=== PATIENT | female | born 1995 | race Caucasian/White ===

== ENCOUNTER 2020-04-08 12:48 | Emergency (ER) | payer BC ==
[~2020-04-08] VITALS: Ht 160 cm; Wt 72.0 kg
[2020-04-08] MEDS ORDERED: SODIUM CHLORIDE 0.9% 1,000ML IVBOLUS ONE (13:30)
--- NOTE | 2020-04-08 13:30 | NUR ---
PT REPORTED THAT SHE HAS HAD DIARRHEA AND LOWER ABDOMEN CRAMPING X4 DAYS. PT IS CURRENTLY 14 WEEKS . PT HAS BEEN RECEIVING CARE. PT DENIES ANY VAGINAL BLEEDING/DISCHARGE OR PAINFUL URINATION.
[2020-04-08 14:02] LABS: MICROSCOPIC NOT IND
[2020-04-08 14:22] LABS: BASOPHILS % (AUTO) 0 % (0-1); EOSINOPHILS % (AUTO) 1 % (1-7); LYMPHOCYTES % (AUTO) 22 % (22-44); MEAN CORPUSCULAR HEMOGLOBIN 31.5 pg (27.0-34.8); MEAN CORPUSCULAR HGB CONC 34.8 g/dL (32.4-35.8); MEAN PLATELET VOLUME 8.2 fL (7.4-10.4); MONOCYTES % (AUTO) 9 % (2-9); NEUTROPHILS % (AUTO) 68 % (42-75); PLATELET COUNT 300 x10^3/uL (130-400); RED CELL DISTRIBUTION WIDTH 12.4 % (9.6-15.2)
[2020-04-08 14:23] LABS: MD NO
[2020-04-08 14:32] LABS: ALBUMIN 3.5 g/dL (3.4-5.0); ANION GAP 8 mmol/L (5-15); CALCIUM 8.9 mg/dL (8.5-10.1); CHLORIDE 109 mmol/L (98-107); CREATININE 0.61 mg/dL (0.55-1.02)
--- NOTE | 2020-04-08 14:45 | NUR ---
PT RESTING COMFORTABLY, IV FLUIDS INFUSING
[2020-04-08 15:30] VITALS: BP 125/78
== END 2020-04-08 15:33 | disposition home or self-care (01) ==
LOC: ED 14:08
DX: O26.892 Other specified pregnancy related conditions, second trimester (principal); R10.2 Pelvic and perineal pain; R19.7 Diarrhea, unspecified; Z3A.00 Weeks of gestation of pregnancy not specified
CPT/HCPCS: 36415; 80048; 81003; 82040; 85025; 99284; J7030

== ENCOUNTER 2020-05-29 09:45 | Outpatient (CLI) | payer BC ==
[~2020-05-29] VITALS: Ht 160 cm; Wt 76.4 kg
[2020-05-29 10:15] VITALS: BP 112/61
== END 2020-05-29 10:40 | disposition home or self-care (01) ==
LOC: LDOP 09:45
PROVIDERS: ATTEND Obstetrics & Gynecology Maternal & Fetal Medicine
DX: O9A.212 Injury, poisoning and certain other consequences of external causes complicating pregnancy, second trimester (principal); W19.XXXA Unspecified fall, initial encounter; Y93.89 Activity, other specified; Y92.89 Other specified places as the place of occurrence of the external cause; Y99.8 Other external cause status; Z3A.21 21 weeks gestation of pregnancy
CPT/HCPCS: 99211; G0463

== ENCOUNTER 2020-08-20 19:34 | Outpatient (CLI) | payer BC ==
[2020-08-20 20:47] LABS: MICROSCOPIC NOT IND
== END 2020-08-20 21:31 | disposition home or self-care (01) ==
LOC: LDOP 19:34
PROVIDERS: ATTEND Obstetrics & Gynecology Maternal & Fetal Medicine
DX: O26.893 Other specified pregnancy related conditions, third trimester (principal); R10.9 Unspecified abdominal pain; M54.5 Low back pain; Z3A.34 34 weeks gestation of pregnancy
CPT/HCPCS: 59025; 81003

== ENCOUNTER 2020-09-25 04:53 | Inpatient (IN) | payer BC ==
[~2020-09-25] VITALS: Ht 160 cm; Wt 87.3 kg
[2020-09-25] MEDS ORDERED: NEWBORN KIT ONE (05:01)
[2020-09-25] MEDS ORDERED: LIDOCAINE 1%, 20ML ONE (05:29)
[2020-09-25] MEDS ORDERED: MISOPROSTOL 200 MCG TABLET ONE (05:29)
[2020-09-25] MEDS ORDERED: OXYTOCIN 30U/ 0.9% NaCL 500ML 500 ML ONE (05:29)
[2020-09-25] MEDS ORDERED: ONDANSETRON 2MG/ML, 2ML IVPush PRN (05:30)
[2020-09-25] MEDS ORDERED: D5%-LACTATED RINGERS 1,000 ML IV SCH (05:30)
[2020-09-25] MEDS ORDERED: TERBUTALINE 1 MG/ML, 1ML IVPush PRN (05:30)
[2020-09-25] MEDS ORDERED: CALCIUM CARBONATE 500 MG TAB.CHEW PO PRN (05:30)
[2020-09-25] MEDS ORDERED: FENTANYL PF 100 MCG/2ML IVPush PRN (05:30)
[2020-09-25] MEDS ORDERED: OXYTOCIN 30U/ 0.9% NaCL 500ML 500 ML IV ONE (05:30)
[2020-09-25] MEDS ORDERED: FENTANYL PF 100 MCG/2ML IV PRN (05:30)
[2020-09-25] MEDS ORDERED: OXYTOCIN 30U/ 0.9% NaCL 500ML 500 ML IV PRN (05:30)
[2020-09-25] MEDS: LACTATED RINGERS 1,000 ML IV SCH ×3 (05:30→22:07)
[2020-09-25] MEDS ORDERED: PENICILLIN GK 5,000,000 UNITS in DEXTROSE 5% 100 ML IVPB ONE (05:30)
[2020-09-25] MEDS ORDERED: TERBUTALINE 1 MG/ML, 1ML SQ PRN (05:30)
[2020-09-25 06:02] LABS: BASOPHILS % (AUTO) 0 % (0-1); EOSINOPHILS % (AUTO) 1 % (1-7); LYMPHOCYTES % (AUTO) 23 % (22-44); MEAN CORPUSCULAR HEMOGLOBIN 31.9 pg (27.0-34.8); MEAN PLATELET VOLUME 9.1 fL (7.4-10.4); MONOCYTES % (AUTO) 8 % (2-9); NEUTROPHILS % (AUTO) 67 % (42-75); PLATELET COUNT 263 x10^3/uL (130-400); RED BLOOD COUNT 4.11 x10^6/uL (3.82-5.3); RED CELL DISTRIBUTION WIDTH 13.1 % (9.6-15.2)
[2020-09-25] MEDS: PENICILLIN GK 2,500,000 UNITS in DEXTROSE 5% 100 ML IVPB SCH ×2 (09:37→13:34)
[2020-09-25] MEDS ORDERED: IBUPROFEN 600 MG TABLET ONE (16:02)
[2020-09-25] MEDS: IBUPROFEN 600 MG TABLET PO PRN ×2 (16:07→22:46)
[2020-09-25] MEDS ORDERED: IBUPROFEN 600 MG TABLET PO PRN (17:00)
[2020-09-25] MEDS ORDERED: SIMETHICONE 80 MG CHEW TAB PO PRN (17:00)
[2020-09-25] MEDS ORDERED: MISOPROSTOL 200 MCG TABLET PR PRN (17:00)
[2020-09-25] MEDS ORDERED: CARBOPROST TROMETHAMINE 250 MCG/ML, 1ML IM PRN (17:00)
[2020-09-25] MEDS ORDERED: OXYcodone/APAP 5/325MG TABLET PO PRN ×2 (17:00)
[2020-09-25] MEDS ORDERED: DIPH,PERTUSS(ACELL),TET VAC/PF NC IM-VACC PRN (17:00)
[2020-09-25] MEDS ORDERED: ACETAMINOPHEN 325 MG TABLET PO PRN (17:00)
[2020-09-25] MEDS ORDERED: METHYLERGONOVINE 0.2 MG/ML IM PRN (17:00)
[2020-09-25] MEDS: OXYTOCIN 30U/ 0.9% NaCL 500ML 500 ML IV SCH (18:00)
[2020-09-25 19:20] VITALS: BP 108/67
[2020-09-25] MEDS: DOCUSATE 100 MG CAPSULE PO PRN (22:46)
[2020-09-25 23:27] VITALS: BP 99/62
[2020-09-25 23:38] LABS: BASOPHILS % (AUTO) 1 % (0-1); EOSINOPHILS % (AUTO) 0 % (1-7); LYMPHOCYTES % (AUTO) 9 % (22-44); MEAN CORPUSCULAR HEMOGLOBIN 31.5 pg (27.0-34.8); MEAN CORPUSCULAR HGB CONC 34.6 g/dL (32.4-35.8); MONOCYTES % (AUTO) 6 % (2-9); NEUTROPHILS % (AUTO) 84 % (42-75); PLATELET COUNT 287 x10^3/uL (130-400); RED BLOOD COUNT 4.14 x10^6/uL (3.82-5.3); RED CELL DISTRIBUTION WIDTH 13.4 % (9.6-15.2)
[2020-09-26] MEDS: LACTATED RINGERS 1,000 ML IV SCH ×3 (04:01→21:30)
[2020-09-26] MEDS: OXYTOCIN 30U/ 0.9% NaCL 500ML 500 ML IV SCH ×2 (04:01→14:00)
[2020-09-26 04:30] VITALS: BP 124/83
[2020-09-26] MEDS: IBUPROFEN 600 MG TABLET PO PRN ×3 (05:16→21:05)
[2020-09-26 07:30] VITALS: BP 109/68
[2020-09-26] MEDS: PRENATAL VIT/IRON/FA 1 EACH TABLET PO SCH (07:31)
[2020-09-26] MEDS: DOCUSATE 100 MG CAPSULE PO PRN ×2 (07:31→21:05)
[2020-09-26 14:50] VITALS: BP 105/68
[2020-09-26 22:30] VITALS: BP 108/71
[2020-09-27] MEDS: IBUPROFEN 600 MG TABLET PO PRN (03:23)
[2020-09-27] MEDS: LACTATED RINGERS 1,000 ML IV SCH (05:30)
[2020-09-27] MEDS ORDERED: IBUP-1222 PO (07:36)
[2020-09-27 08:30] VITALS: BP 103/66
[2020-09-27] MEDS: PRENATAL VIT/IRON/FA 1 EACH TABLET PO SCH (09:00)
[2020-09-27] MEDS: OXYTOCIN 30U/ 0.9% NaCL 500ML 500 ML IV SCH ×2 (10:00)
== END 2020-09-27 12:05 | disposition home or self-care (01) | DRG 807 ==
LOC: LDIP 04:53 → OBSVTOIN 05:27 → 2NW 19:07
PROVIDERS: ADMIT Obstetrics & Gynecology Maternal & Fetal Medicine; ATTEND Obstetrics & Gynecology Maternal & Fetal Medicine
PROC: 3E033VJ Introduction of Other Hormone into Peripheral Vein, Percutaneous Approach (ICD-10-PCS; principal; 2020-09-25)
PROC: 10E0XZZ Delivery of Products of Conception, External Approach (ICD-10-PCS; 2020-09-25)
PROC: 0HQ9XZZ Repair Perineum Skin, External Approach (ICD-10-PCS; 2020-09-25)
DX: O99.824 Streptococcus B carrier state complicating childbirth (principal); Z37.0 Single live birth; Z20.822 Contact with and (suspected) exposure to COVID-19; O64.0XX0 Obstructed labor due to incomplete rotation of fetal head, not applicable or unspecified; O70.0 First degree perineal laceration during delivery; Z3A.39 39 weeks gestation of pregnancy
CPT/HCPCS: 36415; 85025; 86592; 86850; 86900; 87635; J2540; J2590; J7120; G0378

== ENCOUNTER 2020-10-10 00:33 | Emergency (ER) | payer BC ==
[~2020-10-10] VITALS: Ht 160 cm; Wt 79.5 kg
[~2020-10-10 00:33] MED LIST: IBUP-1222 PO
[2020-10-10] MEDS ORDERED: ONDANSETRON 2MG/ML, 2ML IVPush ONE (01:00)
[2020-10-10] MEDS ORDERED: SODIUM CHLORIDE FLUSH 10ML SYR IVF ONE (01:00)
[2020-10-10] MEDS ORDERED: MORPHINE SULFATE 4 MG/ML, 1ML IVPush PRN (01:00)
[2020-10-10] MEDS ORDERED: MORPHINE SULFATE 4 MG/ML, 1ML ONE (01:05)
[2020-10-10] MEDS ORDERED: ONDANSETRON 2MG/ML, 2ML ONE (01:05)
--- NOTE | 2020-10-10 01:24 | NUR ---
pt medicated per order, tolerated well, UA sent to lab at this time
[2020-10-10 01:29] LABS: MICROSCOPIC INDICATED
[2020-10-10 01:42] LABS: BASOPHILS % (AUTO) 0 % (0-1); EOSINOPHILS % (AUTO) 0 % (1-7); LYMPHOCYTES % (AUTO) 10 % (22-44); MEAN CORPUSCULAR HGB CONC 33.8 g/dL (32.4-35.8); MEAN PLATELET VOLUME 8.5 fL (7.4-10.4); MONOCYTES % (AUTO) 10 % (2-9); NEUTROPHILS % (AUTO) 80 % (42-75); PLATELET COUNT 295 x10^3/uL (130-400); RED BLOOD COUNT 4.44 x10^6/uL (3.82-5.3); RED CELL DISTRIBUTION WIDTH 13.2 % (9.6-15.2)
[2020-10-10 01:53] LABS: ALANINE AMINOTRANSFERASE 38 U/L (12-78); ALBUMIN 3.2 g/dL (3.4-5.0); ANION GAP 8 mmol/L (5-15); CALCIUM 8.3 mg/dL (8.5-10.1); CHLORIDE 107 mmol/L (98-107)
--- NOTE | 2020-10-10 01:57 | NUR ---
pt resting in bed, vss, torin. awaiting US read and dispo
[2020-10-10 01:58] LABS: ALKALINE PHOSPHATASE 148 U/L (45-117); BILIRUBIN,TOTAL 0.2 mg/dL (0.2-1.0); CREATININE 0.63 mg/dL (0.55-1.02)
--- NOTE | 2020-10-10 02:45 | NUR ---
ermd [place] at bedside to discuss poc
--- NOTE | 2020-10-10 02:57 | NUR ---
report given to Linus cardoso
[2020-10-10] MEDS ORDERED: CEFTRIAXONE 1,000 MG in DEXTROSE 5% 50 ML IVPB ONE (03:00)
[2020-10-10 03:58] VITALS: BP 101/55
== END 2020-10-10 04:00 | disposition home or self-care (01) ==
LOC: ED 03:02
DX: N30.01 Acute cystitis with hematuria (principal); K80.70 Calculus of gallbladder and bile duct without cholecystitis without obstruction; R10.84 Generalized abdominal pain
CPT/HCPCS: 36415; 76700; 80053; 81001; 83690; 84702; 85025; 87086; 96365; 96375; 99284; J0696; J2270; J2405

== ENCOUNTER 2020-10-13 21:30 | Emergency (ER) | payer BC ==
[~2020-10-13] VITALS: Ht 160 cm; Wt 78.8 kg
[2020-10-13 21:36] VITALS: BP 143/78
== END 2020-10-14 01:30 | disposition home or self-care (01) ==
LOC: ED 21:40
DX: U07.1 COVID-19 (principal); J40 Bronchitis, not specified as acute or chronic; R07.89 Other chest pain
CPT/HCPCS: 71045; 99283

== ENCOUNTER 2020-11-06 03:09 | Emergency (ER) | payer BC ==
[~2020-11-06] VITALS: Ht 160 cm; Wt 79.4 kg
[2020-11-06 04:32] LABS: BASOPHILS % (AUTO) 1 % (0-1); EOSINOPHILS % (AUTO) 3 % (1-7); LYMPHOCYTES % (AUTO) 42 % (22-44); MEAN CORPUSCULAR HEMOGLOBIN 30.8 pg (27.0-34.8); MEAN PLATELET VOLUME 7.8 fL (7.4-10.4); MONOCYTES % (AUTO) 8 % (2-9); NEUTROPHILS % (AUTO) 47 % (42-75); PLATELET COUNT 323 x10^3/uL (130-400); RED BLOOD COUNT 4.87 x10^6/uL (3.82-5.3); RED CELL DISTRIBUTION WIDTH 13.1 % (9.6-15.2)
[2020-11-06 04:45] LABS: ALBUMIN 3.8 g/dL (3.4-5.0); CALCIUM 9.2 mg/dL (8.5-10.1); CHLORIDE 110 mmol/L (98-107)
[2020-11-06 04:54] LABS: ANION GAP 4 mmol/L (5-15)
[2020-11-06 05:33] LABS: MICROSCOPIC INDICATED
--- NOTE | 2020-11-06 06:38 | NUR ---
Elsie leon supervising transvaginal ultrasound for US tech
--- NOTE | 2020-11-06 07:04 | NUR ---
REPORT FROM OSWALD WRIGHT. PT IN BED C/O UPPER ABD PAIN, AMBULAOTRY GAIT STEADY, US PENDING, CALL [place]. WILL NOTIFY
[2020-11-06] MEDS ORDERED: KETOROLAC 30 MG/1 ML ONE (07:08)
[2020-11-06 07:12] VITALS: BP 132/87
[2020-11-06] MEDS ORDERED: KETOROLAC 30 MG/1 ML IM ONE (07:30)
[2020-11-06] MEDS ORDERED: MAALOX/HYOSCYAMINE/LIDOCAINE 45 ML BTL PO ONE (08:00)
[2020-11-06] MEDS ORDERED: MAALOX/HYOSCYAMINE/LIDOCAINE 45 ML BTL ONE (08:10)
== END 2020-11-06 08:20 | disposition home or self-care (01) ==
LOC: ED 06:29
DX: R10.13 Epigastric pain (principal); R10.84 Generalized abdominal pain
CPT/HCPCS: 36415; 76830; 80048; 81001; 82040; 84703; 85025; 87086; 96372; 99284; J1885

== ENCOUNTER 2020-11-23 21:33 | Emergency (ER) | payer BC ==
[~2020-11-23] VITALS: Ht 160 cm; Wt 76.0 kg
[2020-11-23] MEDS ORDERED: ONDANSETRON 2MG/ML, 2ML IVPush ONE (22:00)
[2020-11-23] MEDS ORDERED: MORPHINE SULFATE 4 MG/ML, 1ML IVPush PRN (22:00)
[2020-11-23] MEDS ORDERED: SODIUM CHLORIDE 0.9% 1,000ML IVBOLUS ONE (22:00)
[2020-11-23] MEDS ORDERED: SODIUM CHLORIDE FLUSH 10ML SYR IVF ONE (22:00)
[2020-11-23 22:56] LABS: BASOPHILS % (AUTO) 0 % (0-1); EOSINOPHILS % (AUTO) 1 % (1-7); LYMPHOCYTES % (AUTO) 15 % (22-44); MEAN CORPUSCULAR HEMOGLOBIN 31.3 pg (27.0-34.8); MEAN CORPUSCULAR HGB CONC 34.6 g/dL (32.4-35.8); MEAN PLATELET VOLUME 7.9 fL (7.4-10.4); MONOCYTES % (AUTO) 6 % (2-9); NEUTROPHILS % (AUTO) 77 % (42-75); PLATELET COUNT 359 x10^3/uL (130-400); RED BLOOD COUNT 4.55 x10^6/uL (3.82-5.3); RED CELL DISTRIBUTION WIDTH 12.9 % (9.6-15.2)
[2020-11-23 23:06] LABS: ALANINE AMINOTRANSFERASE 59 U/L (12-78); ALBUMIN 3.7 g/dL (3.4-5.0); ANION GAP 4 mmol/L (5-15); CALCIUM 9.3 mg/dL (8.5-10.1); CHLORIDE 105 mmol/L (98-107)
[2020-11-23 23:09] LABS: ALKALINE PHOSPHATASE 134 U/L (45-117); BILIRUBIN,TOTAL 0.3 mg/dL (0.2-1.0); TOTAL PROTEIN 7.3 g/dL (6.4-8.2)
[2020-11-24] MEDS ORDERED: ONDANSETRON 2MG/ML, 2ML ONE (02:15)
[2020-11-24] MEDS ORDERED: MORPHINE SULFATE 4 MG/ML, 1ML ONE (02:15)
[2020-11-24 02:28] LABS: MICROSCOPIC NOT IND
--- NOTE | 2020-11-24 02:30 | NUR ---
PT PRESENTS TO ED C/O ABD PAIN, NUMBNESS IN THE LEFT HAND X1 HOUR. HX OF SAME. 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 PT SITTING UPRIGHT ON GINA LUA, VSS. PT MEDICATED PER EMAR, PIV STARTED. PT PLACED ON CONTINUOUS MONITORING. CALL LIGHT AND PERSONAL BELONGINGS WITHIN REACH. AWAITING ERP.
[2020-11-24 03:16] VITALS: BP 104/51
--- NOTE | 2020-11-24 03:25 | NUR ---
Patient given discharge instructions and they have confirmed that they understand the instructions. Patient ambulatory with steady gait. NAD, all questions answered appropriately, denies additional needs at this time. No personal belongings left in room after discharge.
== END 2020-11-24 03:34 | disposition home or self-care (01) ==
LOC: ED 22:00
DX: K80.20 Calculus of gallbladder without cholecystitis without obstruction (principal); R10.13 Epigastric pain; R11.2 Nausea with vomiting, unspecified
CPT/HCPCS: 36415; 76700; 80053; 81003; 83690; 84703; 85025; 96361; 96374; 96375; 99284; J2270; J2405; J7030